=== PATIENT | male | born 1980 | race Caucasian/White ===

== ENCOUNTER 2017-07-30 06:50 | Emergency (ER) | payer OTHER ==
[~2017-07-30] VITALS: Ht 182.9 cm; Wt 97.5 kg
[~2017-07-30 06:50] MED LIST: ALBUTEROL2.5 MG/31 INH; AMOXICILLIN 50500 M1 PO; BELSOMRA5 MG PO; CARISOPRODOL 3350 MG PO; CIPROFLOXACIN500 M1 PO; HYDROCODONE-AP1 EAC6 PO; LEVAQUIN 500 M500 M2 PO; PHENERGAN-CODE120 ML PO; PREDNISONE 20 M20 MG PO; PROAIR HFA8.5 GM IH; PROAIR HFA8.5 GM INH; PROMETHAZINE V473 ML PO; ROBITUSSIN15 MG/5 M1 PO; TESSALON PERLE100 MG PO; ZPAK PO
[2017-07-30 07:31] LABS: INFLUENZA B ANTIGEN None Detected (None Detect)
[2017-07-30 08:19] LABS: HEMATOCRIT 42.9 % (42.0-52.0); HEMOGLOBIN 15.2 gm/dL (14.0-18.0); MCH 31.1 pg (26.0-34.0); MCHC 35.5 g/dL (28.0-37.0); MCV 87.8 fL (80.0-100.0); MPV 10.3 fl. (7.2-11.1); NUCLEATED RBCS 0 /100WBC; PLATELET COUNT* 166 thou/uL (150-400); RBC 4.88 mil/uL (4.50-6.00); RDW-CV 13.1 % (10.5-14.5); WBC 6.9 thou/uL (4.0-11.0)
[2017-07-30 08:27] LABS: CALCIUM 8.6 mg/dL (8.5-10.1); POTASSIUM 3.8 mmol/L (3.5-5.1)
[2017-07-30 08:33] LABS: ALBUMIN 3.7 g/dL (3.4-5.0); TOTAL BILIRUBIN 0.4 mg/dL (<0.1-1.0); TOTAL PROTEIN 6.8 g/dL (6.4-8.2)
[2017-07-30 08:48] LABS: ABSOLUTE BASOPHILS 0.1 thou/uL (0.0-0.2); ABSOLUTE EOSINOPHILS 0.1 thou/uL (0.0-0.7); ABSOLUTE MONOCYTES 0.6 thou/uL (0.0-1.2); ABSOLUTE NEUTROPHILS 5.1 thou/uL (1.6-8.1); PLATELET ESTIMATE ADEQUATE
[2017-07-30] MEDS ORDERED: IBUPROFEN 800800 MG PO (09:27)
[2017-07-30] MEDS ORDERED: ULTRAM 50MG TAB50 MG PO (09:27)
[2017-07-30 09:49] VITALS: BP 134/80
== END 2017-07-30 09:49 | disposition home or self-care (01) ==
LOC: M.ERS 06:50
PROVIDERS: Personal Emergency Response Attendant
DX: J09.X2 Influenza due to identified novel influenza A virus with other respiratory manifestations (principal); Z90.49 Acquired absence of other specified parts of digestive tract

== ENCOUNTER 2018-01-15 17:50 | Emergency (ER) | payer OTHER ==
[~2018-01-15] VITALS: Ht 182.9 cm; Wt 99.3 kg
[~2018-01-15 17:50] MED LIST changes: +IBUPROFEN 800800 MG PO; +ULTRAM 50MG TAB50 MG PO
[2018-01-15 18:11] LABS: ABSOLUTE BASOPHILS 0.1 thou/uL (0.0-0.2); ABSOLUTE EOSINOPHILS 0.3 thou/uL (0.0-0.7); ABSOLUTE MONOCYTES 0.7 thou/uL (0.0-1.2); ABSOLUTE NEUTROPHILS 5.3 thou/uL (1.6-8.1); BASOPHILS 0.8 %; EOSINOPHILS 3.7 %; HEMATOCRIT 44.3 % (42.0-52.0); HEMOGLOBIN 15.1 gm/dL (14.0-18.0); LYMPHOCYTES 24.6 %; MCH 31.5 pg (26.0-34.0); MCV 92.5 fL (80.0-100.0); MONOCYTES 7.8 %; MPV 10.6 fl. (7.2-11.1); NUCLEATED RBCS 0 /100WBC; PLATELET COUNT* 191 thou/uL (150-400); POLYS 63.1 %; RBC 4.79 mil/uL (4.50-6.00); RDW-CV 13.1 % (10.5-14.5); WBC 8.3 thou/uL (4.0-11.0)
[2018-01-15 18:25] LABS: ANION GAP 2 mmol/L (7-16); APTT 27.3 Seconds (25.0-31.3); BUN 19 mg/dL (7-18); CALCIUM 8.7 mg/dL (8.5-10.1); CHLORIDE 106 mmol/L (98-107); CO2 29 mmol/L (21-32); CREATININE 0.9 mg/dL (0.6-1.3); GLUCOSE 98 mg/dL (70-99); POTASSIUM 3.8 mmol/L (3.5-5.1); PROTIME 10.1 Seconds (9.20-11.50); SODIUM 137 mmol/L (136-145)
[2018-01-15 18:44] LABS: ALBUMIN 3.8 g/dL (3.4-5.0); ALKALINE PHOSPHATASE 87 U/L (46-116); CK-MB MASS 2.1 ng/mL (<0.5-3.6); LIPASE 106 U/L (73-393); NT-PRO BRAIN NAT PEPTIDE 27 pg/mL (<300); SGOT 31 U/L (15-37); SGPT 49 U/L (30-65); TOTAL BILIRUBIN 0.3 mg/dL (<0.1-1.0); TOTAL PROTEIN 7.2 g/dL (6.4-8.2); TROPONIN-I LEVEL <0.06 ng/mL (<0.06)
[2018-01-15 18:55] VITALS: BP 136/80
--- NOTE | 2018-01-17 12:53 | EKG ---
[place] [address] ELECTROCARDIOGRAM REPORT Name: JESSIE SCHULZ JR Room: [facility]#: [id number] Admission: 01/15/18 Attend Phys: Discharge: 01/15/18 Date of : 80 Report #: [id number] THIS REPORT FOR: //name// [facility] ED Test Date: 2018-01-15 Test Time: 17:55:19 Pat Name: JESSIE SCHULZ Department: Room: Gender: M Continuous Process [employer]: : 1980 Requested By: Reddy Putnam Order Number: [id number] MD: Reggie Chua Measurements Intervals [place] Rate: 71 P: -15 [place]: 122 QRS: 58 QRSD: 97 T: 2 QT: 357 QTc: 388 Interpretive Statements Sinus rhythm No previous ECG available for comparison Electronically Signed On 01-17-2018 12:53:13 CDT by Reggie Chua [email or web address] <ELECTRONICALLY SIGNED> By: Reggie Chua MD, [facility] 01/17/18 1253 1755 1755 Reggie Chua MD, FACC /EPI
== END 2018-01-15 18:56 | disposition home or self-care (01) ==
LOC: M.ERS 17:50
PROVIDERS: Family Medicine
DX: M25.512 Pain in left shoulder (principal); Z90.49 Acquired absence of other specified parts of digestive tract

== ENCOUNTER → 2018-02-26 | Outpatient (CLI) | payer OTHER ==
[2018-02-26 10:18] LABS: CHOLESTEROL 221 mg/dL (<200); TRIGLYCERIDE 87 mg/dL (<150); VLDL 17 mg/dL (<40)
[2018-02-26 10:28] LABS: HDL CHOLESTEROL 36 mg/dL (>40); LDL CHOLESTEROL 168 mg/dL (<100); TC:HDL 6.1 Ratio (Not establshd)
[2018-02-26 10:29] LABS: SERUM ASSESSMENT Clear
--- NOTE | 2018-02-26 16:27 | EXE ---
[place] [address] STRESS ECHOCARDIOGRAM Name: JESSIE SCHULZ JR Room: [facility]#: [id number] Admission: 02/26/18 Attend Phys: Wilbur Villagomez, Discharge: Date of : 80 Date of Service: 02/26/18 1627 Report #: [id number] THIS REPORT FOR: //name// APPROVED REPORT Study performed: 02/26/2018 11:31:04 Exam: Stress Echocardiogram Indication: Chest pain , Dyspnea Patient Location: Out-Patient Stress Nurse: Radha De Leon RN Supervising Physician: Wilbur Villagomez MD Ht: 6 ft 0 in HR: 61 bpm BP: 137/87 mmHg Medical History Cardiac Risk Factors: Tobacco History (Former), FHX of CAD, HTN Procedure The patient underwent an Exercise Stress Test using the Michael Protocol. Blood pressure, heart rate, and EKG were monitored. An Echocardiogram was performed by electrical technician in four stages in quad fashion. At peak stress, four selected images were obtained and placed side by side with resting images for comparison. Stress Test Details Stress Test: Exercise stress testing was performed using a Michael protocol. HR Resting HR: 61 bpm Max Heart Rate (APMHR): 183 bpm Max HR Achieved: 171 bpm Target HR (85% APMHR): 155 bpm % of APMHR: 93 Recovery HR: 86 bpm HR response to stress: Normal HR response to stress BP Resting BP: 137/87 mmHg Max BP: 195/96 mmHg Recovery BP: 148/78 mmHg ECG Resting ECG: Sinus Rhythm Stress ECG: [place] [address] STRESS ECHOCARDIOGRAM Name: JESSIE SCHULZ JR Room: [facility]#: [id number] Admission: 02/26/18 Attend Phys: Wilbur Villagomez, Discharge: Date of : 80 Date of Service: 02/26/18 1627 Report #: [id number] ST Change: Normal Recovery ECG: Sinus Rhythm Recovery ST Change: Normal Clinical Reason for Termination: Completed protocol, Maximal effort, Leg pain Stress Symptoms: Leg Fatigue Exercise duration: 10 min 02 sec Highest Stage Achieved: Stage 4: 4.2 mph at 16% grade. Exercise capacity: 11.84 METs Stress ECG Conclusion negative ecg portion Pre-Stress Echo The resting Echocardiogram showed normal left ventricular contractility with an estimated Ejection Fraction of about 50-55%. Post-Stress Echo LV chamber size decreases, LV ejection fraction increases, no new wall motion abnormalities are seen. Conclusion Clinical Response: Non-ischemic Exercise Capacity: Superior Stress ECG Response: Non-ischemic Stress Echo Images: Non-ischemic Negative treadmill stres echo for ischemia. <Conclusion> Negative treadmill stres echo for ischemia. <ELECTRONICALLY SIGNED> By: Wilbur Villagomez MD, FACC 02/26/181626 26 26 Wilbur Villagomez MD, FACC /INF
== END ==
LOC: M.CRD 02-21 14:52 → M.ULTRA 09:33 → M.CRD 11:00
PROVIDERS: Internal Medicine Cardiovascular Disease
DX: I65.23 Occlusion and stenosis of bilateral carotid arteries (principal); R07.9 Chest pain, unspecified; E78.5 Hyperlipidemia, unspecified

== ENCOUNTER 2019-01-16 02:37 | Emergency (ER) | payer OTHER ==
[~2019-01-16] VITALS: Ht 182.9 cm; Wt 108.9 kg
[2019-01-16] MEDS ORDERED: LIPITOR10 MG PO (02:48)
[2019-01-16] MEDS ORDERED: AMLODIPINE BESY10 MG PO (02:48)
[2019-01-16] MEDS ORDERED: NORCO 5-325 TA1 EAC1 PO (02:49)
[2019-01-16] MEDS ORDERED: PRILOSEC OTC20 MG PO (02:49)
[2019-01-16] MEDS ORDERED: CARISOPRODOL 3350 MG PO (02:49)
[2019-01-16 03:45] LABS: ABSOLUTE EOSINOPHILS 0.1 thou/uL (0.0-0.7); ABSOLUTE MONOCYTES 0.9 thou/uL (0.0-1.2); ABSOLUTE NEUTROPHILS 8.3 thou/uL (1.6-8.1); BASOPHILS 0.3 %; EOSINOPHILS 0.6 %; HEMATOCRIT 43.5 % (42.0-52.0); HEMOGLOBIN 14.5 gm/dL (14.0-18.0); LYMPHOCYTES 9.3 %; MCH 30.1 pg (26.0-34.0); MCHC 33.3 g/dL (28.0-37.0); MCV 90.5 fL (80.0-100.0); MONOCYTES 8.7 %; MPV 11.1 fl. (7.2-11.1); NUCLEATED RBCS 0 /100WBC; PLATELET COUNT* 154 thou/uL (150-400); POLYS 81.1 %; WBC 10.3 thou/uL (4.0-11.0)
[2019-01-16 04:03] LABS: ANION GAP 8 mmol/L (7-16); BUN 18 mg/dL (7-18); CALCIUM 8.9 mg/dL (8.5-10.1); CHLORIDE 104 mmol/L (98-107); CO2 28 mmol/L (21-32); CREATININE 0.9 mg/dL (0.6-1.3); GLUCOSE 110 mg/dL (70-99); POTASSIUM 3.7 mmol/L (3.5-5.1); SODIUM 140 mmol/L (136-145)
[2019-01-16 04:12] LABS: ALBUMIN 3.8 g/dL (3.4-5.0); ALKALINE PHOSPHATASE 112 U/L (46-116); LIPASE 62 U/L (73-393); NT-PRO BRAIN NAT PEPTIDE 28 pg/mL (<300); SGOT 26 U/L (15-37); SGPT 58 U/L (30-65); TOTAL BILIRUBIN 0.6 mg/dL (<0.1-1.0); TROPONIN-I LEVEL <0.06 ng/mL (<0.06)
[2019-01-16 04:47] LABS: URINE BILIRUBIN NEGATIVE (Negative); URINE BLOOD NEGATIVE (Negative); URINE CLARITY CLEAR; URINE COLOR YELLOW; URINE GLUCOSE-RANDOM NEGATIVE (Negative); URINE KETONES NEGATIVE (Negative); URINE LEUKOCYTES-REFLEX NEGATIVE (Negative); URINE NITRITE-REFLEX NEGATIVE (Negative); URINE PROTEIN NEGATIVE (Negative); URINE UROBILINOGEN 0.2 E.U./dl (0.2-1.0)
[2019-01-16 05:16] LABS: INFLUENZA A ANTIGEN None Detected (None Detect); INFLUENZA B ANTIGEN None Detected (None Detect)
[2019-01-16] MEDS ORDERED: MECLIZINE HCL25 M1 PO (05:26)
[2019-01-16] MEDS ORDERED: ZOFRAN4 MG PO (05:26)
[2019-01-16] MEDS ORDERED: HYDROCODON-ACE1 EAC7 PO (05:26)
[2019-01-16 05:35] VITALS: BP 124/74
--- NOTE | 2019-01-16 17:01 | EKG ---
[place] [address] ELECTROCARDIOGRAM REPORT Name: JESSIE SCHULZ JR Room: [facility]#: [id number] Admission: 01/16/19 Attend Phys: Discharge: Date of : 80 Report #: [id number] THIS REPORT FOR: //name// [facility] ED Test Date: 2019-01-16 Test Time: 03:36:58 Pat Name: JESSIE SCHULZ Department: Room: Gender: M Sql Database Administrator: : 1980 Requested By: Preston Meehan Order Number: [id number] MD: Parag Phillips Measurements Intervals [place] Rate: 94 P: 30 DC: 139 QRS: 55 QRSD: 97 T: -3 QT: 343 QTc: 429 Interpretive Statements Sinus rhythm Low voltage, precordial leads Borderline T abnormalities, inferior leads Baseline wander in lead(s) V2,V3 Compared to ECG 01/15/2018 17:55:19 Low QRS voltage now present T-wave abnormality now present Electronically Signed On 01-16-2019 17:01:22 CDT by Parag Phillips [email or web address] <ELECTRONICALLY SIGNED> By: Parag Phillips MD, FACC 01/16/19 1701 0336 0336 Parag Phillips MD, [facility] /EPI
== END 2019-01-16 05:39 | disposition home or self-care (01) ==
LOC: M.ERS 02:37
PROVIDERS: Emergency Medicine
DX: B34.9 Viral infection, unspecified (principal); M48.00 Spinal stenosis, site unspecified; Z90.49 Acquired absence of other specified parts of digestive tract